=== PATIENT | male | born 1940 | race Caucasian/White ===

== ENCOUNTER 2020-06-20 10:02 | Inpatient (IN) | payer MEDICARE, OTHER, SELFPAY ==
[~2020-06-20] VITALS: Ht 167.6 cm; Wt 58.3 kg
--- NOTE | 2020-06-20 10:24 | NUR ---
PT BIBA. PER EMS PT WAS SEEN AT [facility] FOR WEAKNESS AND BLACK STOOLS. PT ALSO HAS A KNOWN UTI AND BILAT PNA. PER EMS PT HAD A RAPID COVID TEST THAT WAS NEGATIVE AT SENDING FACILITY. PER EMS PT POTENTIALLY HAS A TIB/FIB FX, DID NOT KNOW WHICH LEG. 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 PT ONLY ARROUSABLE TO PAINFUL STIMULI AND WILL ONLY OPEN EYES. PER EMS PT'S BASELINE IS A&OX1 WITH HX OF DEMENTIA. PT RESTING IN RNEY, CARDIAC MONITORING & CONT PULSE OX IN PLACE, NAD NOTED AT THIS TIME, WILL CONTINUE TO MONITOR.
[2020-06-20] MEDS ORDERED: SODIUM CHLORIDE 0.9% 1,000ML IVBOLUS ONE ×2 (11:00→12:30)
--- NOTE | 2020-06-20 11:22 | NUR ---
WOUND CONSULT PLACED. PT PLACED ON HOSPITAL BED. PT CLEANED AND BARRIER LOTION APPLIED TO SACRUM/ BUTTOCKS. PT STILL ONLY ARROUSABLE TO PAINFUL STIMULI.
[2020-06-20 11:55] LABS: BASOPHILS % (AUTO) 0 % (0-1); EOSINOPHILS % (AUTO) 2 % (1-7); LYMPHOCYTES % (AUTO) 8 % (22-44); MEAN CORPUSCULAR HEMOGLOBIN 24.4 pg (27.5-34.5); MEAN CORPUSCULAR HGB CONC 31.9 g/dL (33.2-36.2); MEAN PLATELET VOLUME 7.6 fL (7.4-10.4); MONOCYTES % (AUTO) 5 % (2-9); NEUTROPHILS % (AUTO) 85 % (42-75); PLATELET COUNT 285 x10^3/uL (130-400); RED BLOOD COUNT 3.48 x10^6/uL (4.38-5.82); RED CELL DISTRIBUTION WIDTH 18.7 % (9.4-14.8)
[2020-06-20 12:06] LABS: ALANINE AMINOTRANSFERASE 8 U/L (12-78); ALBUMIN 1.9 g/dL (3.4-5.0); ANION GAP 5 mmol/L (5-15); CALCIUM 8.5 mg/dL (8.5-10.1); CHLORIDE 111 mmol/L (98-107); CREATININE 1.95 mg/dL (0.7-1.3); MD NO
[2020-06-20 12:08] LABS: ALKALINE PHOSPHATASE 70 U/L (45-117); BILIRUBIN,TOTAL 0.4 mg/dL (0.2-1.0); TOTAL PROTEIN 7.2 g/dL (6.4-8.2)
[2020-06-20] MEDS ORDERED: AZITHROMYCIN 500 MG in SODIUM CHLORIDE 0.9% 250 ML IV ONE (13:00)
--- NOTE | 2020-06-20 13:28 | NUR ---
PT'S SON, JB, CALLED FOR UPDATE. PER JB IT IS OKAY TO START PICC LINE FOR BP MANAGEMENT. CRISTIANO HARTMAN WITNESSED PHONE CALL WITH THIS RN. JB PHONE NUMBER - [phone].
--- NOTE | 2020-06-20 13:30 | NUR ---
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
--- NOTE | 2020-06-20 14:39 | NUR ---
CONFIRMED POLST WITH SON JB OVER PHONE. WILL NOT BE DOING PICC LINE AT THIS TIME.
[2020-06-20] MEDS ORDERED: VANCOMYCIN PER PHARMACY MC PRN (15:30)
[2020-06-20] MEDS ORDERED: DOCUSATE 100 MG CAPSULE PO PRN (15:30)
[2020-06-20] MEDS ORDERED: ONDANSETRON 2MG/ML, 2ML IVPush PRN (15:30)
[2020-06-20] MEDS ORDERED: POLYETHYLENE GLYCOL 17 GM PACKET PO PRN (15:30)
[2020-06-20] MEDS ORDERED: PHARMACY MAY ADJ FOR RENAL FX MC PRN (15:30)
[2020-06-20] MEDS ORDERED: ACETAMINOPHEN 325 MG TABLET PO PRN (15:30)
[2020-06-20] MEDS: SODIUM CHLORIDE 0.9% 1,000 ML IV SCH (15:30)
[2020-06-20] MEDS ORDERED: ONDANSETRON ODT 4 MG PO PRN (15:30)
[2020-06-20] MEDS ORDERED: hydrALAzine 20 MG/ML, 1ML IVPush PRN (15:30)
[2020-06-20] MEDS ORDERED: BISACODYL 10 MG SUPP PR PRN (15:30)
[2020-06-20] MEDS ORDERED: PIPERACILLIN/TAZO/PMX 4.5GM 100 ML IV SCH (15:30)
[2020-06-20] MEDS ORDERED: LABETALOL 5MG/ML, 20ML IVPush PRN (15:30)
[2020-06-20] MEDS ORDERED: PIPERACILLIN/TAZO/PMX 3.375GM 50 ML ONE (16:00)
[2020-06-20] MEDS ORDERED: PLEASE ENTER ALLERGIES MC SCH (16:00)
[2020-06-20] MEDS ORDERED: VANCOMYCIN 1,500 MG in SODIUM CHLORIDE 0.9% 100 ML IV ONE (18:30)
[2020-06-20] MEDS ORDERED: PHARMACOKINETIC MONITORING MC PRN (18:30)
[2020-06-20] MEDS ORDERED: PHARMACOKINETIC CONSULTATION MC ONE (18:30)
[2020-06-20] MEDS ORDERED: VANCOMYCIN 1,500 MG in SODIUM CHLORIDE 0.9% 250 ML IV ONE (19:00)
[2020-06-20] MEDS ORDERED: PANTOPRAZOLE 40 MG IV ONE (20:39)
[2020-06-20] MEDS: PANTOPRAZOLE 40 MG IV IVPush SCH (20:43)
--- NOTE | 2020-06-20 22:53 | NUR ---
REPORT GIVEN TO CRISTIANO FONTENOT.
[2020-06-20 23:39] VITALS: BP 123/67
[2020-06-21] MEDS ORDERED: GABAPENTIN 100 MG CAPSULE ONE (00:01)
[2020-06-21] MEDS: PIPERACILLIN/TAZO/PMX 3.375GM 50 ML IV SCH ×2 (00:32→06:11)
[2020-06-21] MEDS: SODIUM CHLORIDE 0.9% 1,000 ML IV SCH (01:52)
[2020-06-21 02:20] VITALS: BP 112/64
[2020-06-21 05:27] LABS: BASOPHILS % (AUTO) 0 % (0-1); EOSINOPHILS % (AUTO) 4 % (1-7); LYMPHOCYTES % (AUTO) 11 % (22-44); MEAN CORPUSCULAR HEMOGLOBIN 24.4 pg (27.5-34.5); MEAN CORPUSCULAR HGB CONC 31.4 g/dL (33.2-36.2); MEAN PLATELET VOLUME 7.3 fL (7.4-10.4); MONOCYTES % (AUTO) 6 % (2-9); NEUTROPHILS % (AUTO) 80 % (42-75); PLATELET COUNT 302 x10^3/uL (130-400); RED BLOOD COUNT 3.61 x10^6/uL (4.38-5.82); RED CELL DISTRIBUTION WIDTH 18.8 % (9.4-14.8)
[2020-06-21 05:32] LABS: ALBUMIN 1.9 g/dL (3.4-5.0); ANION GAP 5 mmol/L (5-15); CALCIUM 7.9 mg/dL (8.5-10.1); CHLORIDE 115 mmol/L (98-107)
[2020-06-21 05:35] LABS: MD NO
[2020-06-21 05:36] LABS: ALANINE AMINOTRANSFERASE 8 U/L (12-78); ALKALINE PHOSPHATASE 70 U/L (45-117); BILIRUBIN,TOTAL 0.3 mg/dL (0.2-1.0); CREATININE 1.58 mg/dL (0.7-1.3)
[2020-06-21 07:28] VITALS: BP 118/68
[2020-06-21] MEDS ORDERED: D5%-0.45NACL+KCL 20MEQ 1,000 ML IV SCH (08:00)
[2020-06-21] MEDS: PANTOPRAZOLE 40 MG IV IVPush SCH (10:04)
[2020-06-21] MEDS ORDERED: DEXTROSE 50%, 50ML SYRINGE ONE (10:15)
[2020-06-21] MEDS ORDERED: SODIUM CHLORIDE FLUSH 10ML SYR IVF SCH (10:30)
[2020-06-21] MEDS ORDERED: DEXTROSE 4 GM TAB.CHEW PO PRN (10:30)
[2020-06-21] MEDS ORDERED: DEXTROSE 50%, 50ML SYRINGE IVPush PRN (10:30)
[2020-06-21] MEDS ORDERED: GLUCAGON 1 MG IM PRN (10:30)
[2020-06-21 11:49] LABS: MICROSCOPIC INDICATED
[2020-06-21 12:25] VITALS: BP 114/64
[2020-06-21] MEDS ORDERED: SCOPOLAMINE 1MG PATCH TD PRN (12:30)
[2020-06-21] MEDS ORDERED: MORPHINE 30MG/30ML PCA.SYR IV PRN (12:30)
[2020-06-21] MEDS: LORazepam 2 MG/ML, 1ML IVPush PRN ×2 (13:07→20:29)
[2020-06-21] MEDS ORDERED: VANCOMYCIN 1,200 MG in SODIUM CHLORIDE 0.9% 250 ML IV SCH (14:00)
[2020-06-21] MEDS: morphine SULFATE 100 MG in DEXTROSE 5% 90 ML IV PRN (14:12)
[2020-06-22] MEDS: LORazepam 2 MG/ML, 1ML IVPush PRN (19:54)
[2020-06-22] MEDS: morphine SULFATE 100 MG in DEXTROSE 5% 90 ML IV PRN (20:11)
== END 2020-06-23 14:58 | disposition expired | DRG 871 ==
LOC: ED 14:18 → EDIP 15:17 → 4WST 23:14 → 4NW 06-22 10:01
PROVIDERS: ADMIT Family Medicine; ATTEND Family Medicine
PROC: 02HV33Z Insertion of Infusion Device into Superior Vena Cava, Percutaneous Approach (ICD-10-PCS; principal; 2020-06-20)
PROC: 0T9B30Z Drainage of Bladder with Drainage Device, Percutaneous Approach (ICD-10-PCS; 2020-06-21)
DX: A41.9 Sepsis, unspecified organism (principal); E43 Unspecified severe protein-calorie malnutrition; G93.41 Metabolic encephalopathy; J18.9 Pneumonia, unspecified organism; N39.0 Urinary tract infection, site not specified; N17.9 Acute kidney failure, unspecified; D68.69 Other thrombophilia; I69.354 Hemiplegia and hemiparesis following cerebral infarction affecting left non-dominant side; Z20.828 Contact with and (suspected) exposure to other viral communicable diseases; R65.20 Severe sepsis without septic shock; D64.9 Anemia, unspecified; F03.90 Unspecified dementia, unspecified severity, without behavioral disturbance, psychotic disturbance, mood disturbance, and anxiety; F41.9 Anxiety disorder, unspecified; F64.9 Gender identity disorder, unspecified; I10 Essential (primary) hypertension; I48.0 Paroxysmal atrial fibrillation; K21.9 Gastro-esophageal reflux disease without esophagitis; I95.9 Hypotension, unspecified; D72.829 Elevated white blood cell count, unspecified; I71.9 Aortic aneurysm of unspecified site, without rupture; Z51.5 Encounter for palliative care; Z66 Do not resuscitate; Z87.440 Personal history of urinary (tract) infections; Z87.442 Personal history of urinary calculi; Z87.891 Personal history of nicotine dependence; Z79.899 Other long term (current) drug therapy; Z79.891 Long term (current) use of opiate analgesic; Z79.01 Long term (current) use of anticoagulants; Z79.82 Long term (current) use of aspirin; Z68.20 Body mass index [BMI] 20.0-20.9, adult
CPT/HCPCS: 36415; 70450; 71045; 74176; 80053; 81001; 82140; 82728; 82962; 83540; 83550; 83605; 83735; 84100; 84145; 84466; 85014; 85018; 85025; 87040; 87077; 87086; 87186; 93005; 96361; 96365; 96375; 99285; G0378; J0456; J2543; J3370; C9113; J2060; J2270; J3480; J7030; J7050; U0003